=== PATIENT | female | born 1975 | race Caucasian/White ===

== ENCOUNTER 2022-02-21 11:22 | Emergency (ER) | payer OTHER, SELFPAY ==
--- NOTE | ~2022-02-21 | CT_ITS ---
EXAMINATION: CT abdomen pelvis w con DATE: 02/21/2022 13:31 INDICATION: Generalized abdominal pain and vomiting. TECHNIQUE: Computed tomography (CT) of the abdomen and pelvis was performed with 100 cc Omnipaque 350 intravenous contrast. The dose-length product was 1372.23 mGy-cm. Automated exposure control and ite rative reconstruction technique were employed. COMPARISON: None. FINDINGS: Lung bases unremarkable. Heart size normal. No significant pleural or pericardial effusion. Mild atherosclerosis of the aorta without aneurysm. No lymphadenopathy. Fatty infiltration of the liver. Status post cholecystectomy. The spleen contains calcified granuloma s. The pancreas, adrenal glands and kidneys are unremarkable. Nonobstructive bowel gas pattern. No ev idence for appendicitis or diverticulitis. No free air or free fluid. No acute osseous abnormality. N o lytic or blastic lesions. IMPRESSION: 1. No acute abdominal abnormality. Reviewed, dictated and finalized at location A.
[2022-02-21 11:26] VITALS: BP 154/90; PULSE 91; RESP 18; TEMP 35.8; O2SAT 100
[2022-02-21 12:09] LABS: Basophils Absolute Auto 0.1 K/mm3 (0.0-0.1); Basophils Percent Auto 0.3 % (0.2-1.2); Eosinophils Absolute Auto 0.1 K/mm3 (0-0.3); Eosinophils Percent Auto 0.8 % (0-4.4); Hematocrit 44.1 % (37.0-47.0); Hemoglobin 14.9 g/dL (12.0-15.0); Immature Granulocyte Absolute 0.13 K/mm3 (0.00-0.031); Immature Granulocyte Percent A 0.7 % (0-0.5); Lymphocytes Absolute Auto 5.26 K/mm3 (0.9-3.2); Lymphocytes Percent Auto 28.2 % (18.3-44.2); Mean Corpuscular HGB Conc 33.8 g/dl (32-36); Mean Corpuscular Hemoglobin 32.7 pg (26-34); Mean Corpuscular Volume 96.7 fl (80-100); Mean Platelet Volume 10.1 fl (7.4-10.4); Monocytes Percent Auto 10.7 % (2.6-8.5); Neutrophils Percent Auto 59.3 % (45.5-73.1); Platelet Count Result 335 k/mm3 (150-375); Red Blood Count 4.56 M/mm3 (4.2-5.4); Red Cell Distribution Width 13.1 % (11.5-14.5); White Blood Count 18.6 K/mm3 (4.5-10.0)
[2022-02-21 12:10] LABS: Add Urine Microscopic? YES; Appearance Urine Cloudy (Clear); Bacteria Urine Trace /hpf; Bilirubin Urine Negative (Negative); Blood Urine Negative (Negative); Color Urine Amber (Yellow); Glucose Urine UA Negative (Negative); Ketones Urine 1+ mg/dL (Negative); Leukocyte Esterase Ur Negative LEU/UL (Negative); Mucus Urine Heavy /lpf; Nitrate Urine Negative (Negative); Protein Urine 2+ mg/dL (Negative); Squamous Epithelial Cell Urine Many /hpf (Few)
[2022-02-21 12:22] LABS: Specific Grav Ur 1.031 (1.001-1.035)
[2022-02-21 12:32] LABS: Alanine Aminotransferase 23 U/L (4-35); Albumin Level 4.8 g/dL (3.5-5.1); Alkaline Phosphatase 74 U/L (38-126); Anion Gap 10 mmol/L (8-16); Aspartate Amino Transferase 25 U/L (14-36); Bilirubin,Total 0.6 mg/dL (0.2-1.3); Blood Urea Nitrogen 16 mg/dL (7-17); Calcium 9.3 mg/dL (8.4-10.2); Carbon Dioxide 24 mmol/L (22-30); Chloride 106 mmol/L (98-107); Estimated CRCL calculation 94 ml/min; Estimated Glomerular Filt Rate > 60; Glucose 100 mg/dL (65-110); Lipase 41 U/L (23-300); Potassium 3.6 mmol/L (3.4-5.0); Sodium 140 mmol/L (137-145)
[2022-02-21 12:33] LABS: Atypical Lymphocytes Present; Platelet Estimate Adequate (Adequate)
--- NOTE | 2022-02-21 13:16 | ED.GENADULT ---
HPI - General Adult General Chief complaint: Nausea/Vomiting/Diarrhea Stated complaint: vomiting x 3 days/hemorrhoid Time Seen by Provider: 02/21/22 12:56 Source: patient History of Present Illness HPI narrative: 46-year-old female presented to the emergency department for evaluation of nausea and vomiting for the last 3 days. Patient is also having issues with hemorrhoids. Patient states that she did take some okay Ex-Lax and states she is now having diarrhea. Patient does report a prior history of cholecystectomy and exploratory laparoscopy.. Related Data Allergies Allergy/AdvReac Type Severity Reaction Status Date / Time No Known Allergies Allergy Verified 02/21/22 12:30 Review of Systems Review of Systems: CONSTITUTIONAL: Denies fever, chills, or sweats. EYES: Denies visual changes, redness, or discharge. ENT: Denies rhinorrhea, congestion, sore throat, or otalgia. CARDIOVASCULAR: Denies chest pain, palpitations, or edema. RESPIRATORY: Denies cough or dyspnea. GASTROINTESTINAL: abdominal pain, and hemorrhoids GENITOURINARY: Denies dysuria or hematuria. SKIN: Denies rash or itching. MUSCULOSKELETAL: Denies back pain, joint pain, or myalgia. NEUROLOGIC: Denies headache, numbness, or weakness. PSYCHIATRIC: Denies anxiety or depression. All systems reviewed & are unremarkable except as noted in HPI and below Exam Narrative: APPEARANCE: Well appearing, no pain, no distress, well-nourished. HEAD: normocephalic, atraumatic. EYES: PERRLA/EOMI, conjunctivae clear. NECK: Supple. No adenopathy, no masses. RESPIRATORY: Airway patent, respirations nonlabored. Clear to auscultation bilaterally, no rales, rhonchi, wheezing. CARDIOVASCULAR: Regular rate and rhythm without murmurs rubs or gallops. ABDOMINAL: lower abdominal tenderness. Patient does have non-thrombosed external hemorrhoids on exam. No active bleeding. MUSCULOSKELETAL: Moves all extremities. Strength/ROM intact, No edema, No calf tenderness. NEURO: Alert. Cranial nerves II through XII intact. Good coordination SKIN: Warm, dry. Normal Color PSYCHIATRIC: Normal affect/mood. Course Course Emergency Course: Patient was updated the results of her labs and imaging. Patient was started on antibiotics for her urinary tract infection. Patient was encouraged to continue MiraLAX in order to help with her hemorrhoids. Patient was encouraged to have close follow-up with general surgery regarding her hemorrhoids. All questions and concerns were addressed. Patient was in no distress at time of discharge. Vital Signs Vital signs: Vital Signs Temperature 96.5 F L 02/21/22 11:26 Pulse Rate 91 02/21/22 11:26 Respiratory Rate 18 02/21/22 11:26 Blood Pressure 154/90 H 02/21/22 11:26 Pulse Oximetry 100 02/21/22 11:26 Temperature 96.5 F L 02/21/22 11:26 Pulse Rate 91 02/21/22 11:26 Respiratory Rate 18 02/21/22 11:26 Blood Pressure 154/90 H 02/21/22 11:26 Pulse Oximetry 100 02/21/22 11:26 Medical Decision Making Vital Signs Vital Signs: Vital Signs Temperature 96.5 F L 02/21/22 11:26 Pulse Rate 91 02/21/22 11:26 Respiratory Rate 18 02/21/22 11:26 Blood Pressure 154/90 H 02/21/22 11:26 Pulse Oximetry 100 02/21/22 11:26 Temperature 96.5 F L 02/21/22 11:26 Pulse Rate 91 02/21/22 11:26 Respiratory Rate 18 02/21/22 11:26 Blood Pressure 154/90 H 02/21/22 11:26 Pulse Oximetry 100 02/21/22 11:26 Lab Data Lab results reviewed: Yes I reviewed the patient's lab results. Result diagrams: 02/21/22 11:51 02/21/22 11:51 Labs: Lab Results 02/21/22 02/21/22 02/21/22 Range/Units 11:51 11:51 11:51 WBC 18.6 H (4.5-10.0) K/mm3 RBC 4.56 (4.2-5.4) M/mm3 Hgb 14.9 (12.0-15.0) g/dL Hct 44.1 (37.0-47.0) % MCV 96.7 (80-100) fl MCH 32.7 (26-34) pg MCHC 33.8 (32-36) g/dl RDW 13.1 (11.5-14.5) % Plt Count 335 (150-375) k/mm3 MPV 10.1 (7.4-10.4) fl Deloris
== END 2022-02-21 15:11 | disposition home or self-care (01) ==
PROVIDERS: Emergency Medicine; Emergency Provider Emergency Medicine; PCP Physician Assistant
DX: N30.01 Acute cystitis with hematuria (principal); R10.30 Lower abdominal pain, unspecified; K64.9 Unspecified hemorrhoids
CPT/HCPCS: 36415; 74177; 80053; 81001; 81025; 83690; 85025; 87086; 96365; 99284; J0696; Q9967